=== PATIENT | male | born 1955 | race Caucasian/White ===

== ENCOUNTER 2022-03-10 03:10 | Inpatient (IN) | payer BC ==
[2022-03-10] MEDS ORDERED: Ondansetron PF 4 MG/2 ML Vial ONE ×2 (05:02→12:53)
[2022-03-10 05:36] LABS: #Basophils 0.1 10x3/uL (0.0-0.2); #Eosinphils 0.1 10x3/uL (0.0-0.5); #Monocytes 0.5 10x3/uL (0.0-1.1); #Neutrophils 5.4 10x3/uL (1.5-8.4); %Basophils 0.7 % (0.0-2.0); %Eosinophils 0.7 % (0.0-6.0); %Lymphocytes 15.2 % (18.0-47.0); %Monocytes 6.4 % (0.0-10.0); %Neutrophils 76.7 % (40.0-75.0); Hemoglobin 15.9 g/dL (13.5-17.5); Mean Corpuscular HGB CONC 33.6 g/dL (32.0-36.0); Mean Corpuscular Hemoglobin 28.3 pg (27.0-33.0); Mean Corpuscular Volume 84.3 fl (81.2-95.1); Mean Platelet Volume 10.4 fl (7.4-10.4); Platelet Count 204 10x3/uL (150-450); RBC Distribution Width 13.1 % (11.5-14.5); Red Blood Cell (RBC) Count 5.61 10x6/uL (4.32-5.72)
[2022-03-10 06:10] LABS: ALT (SGPT) 18 U/L (8-55); AST (SGOT) 26 U/L (5-34); Alkaline Phosphatase 49 U/L (40-110); Anion Gap 18 mmol/L (10-20); BUN (Urea Nitrogen) 16 mg/dL (8.4-25.7); Bilirubin, Total 0.7 mg/dL (0.2-1.2); Calc. Creatinine Clearance 0 mL/min (70-130); Calcium 9.8 mg/dL (7.8-10.44); Carbon Dioxide 24 mmol/L (23-31); Chloride 102 mmol/L (98-107); Estimated GFR 85; Globulin 3.4 g/dL (2.4-3.5); Glucose 111 mg/dL (80-115); Lipase 48 U/L (8-78); Potassium 3.6 mmol/L (3.5-5.1); Protein, Total 8.4 g/dL (5.8-8.1); Sodium 140 mmol/L (136-145)
[2022-03-10] MEDS ORDERED: Piperacillin/Tazobactam 3.375 GM VIAL ONE ×2 (07:49→15:25)
[2022-03-10 08:27] LABS: SARS-CoV-2 NAA Rapid Test Not Detected (NotDetected)
[2022-03-10] MEDS ORDERED: Morphine 4 MG/ML VIAL ONE ×2 (08:54→12:53)
[2022-03-10] MEDS ORDERED: Bupivacaine 0.25% HCL 30 ML VIAL ONE (15:20)
[2022-03-10] MEDS ORDERED: EPINEPHrine 1 MG/ML AMP ONE (15:21)
[2022-03-10] MEDS ORDERED: PROPOFOL 20 ML ONE (15:51)
[2022-03-10] MEDS ORDERED: Fentanyl 100 MCG/2 ML VIAL ONE ×2 (15:52→16:23)
[2022-03-10] MEDS ORDERED: Rocuronium Bromide 10 MG/ML (10ML VIAL) ONE (15:53)
[2022-03-10] MEDS ORDERED: Succinylcholine 200 MG/10 ml SYRINGE FS ONE (15:53)
[2022-03-10] MEDS ORDERED: Ketorolac Tromethamine 30 MG/ML VIAL ONE (16:10)
[2022-03-10] MEDS ORDERED: PHENYLEPHRINE-NS 100 MCG/ML 10 ML SYRINGE ONE (16:13)
[2022-03-10] MEDS ORDERED: Dexamethasone 20 MG/5 ML VIAL ONE (16:13)
[2022-03-10] MEDS ORDERED: Esmolol 100 MG/10 ML VIAL ONE (16:25)
[2022-03-10] MEDS ORDERED: Mag-Al 1200 mg/1200 mg/30 ML UDCUP PO PRN (17:36)
[2022-03-10] MEDS ORDERED: Ondansetron PF 4 MG/2 ML Vial IVP PRN (17:36)
[2022-03-10] MEDS ORDERED: HYDROcodone/Acetaminophen 10/325 mg Tablet PO PRN (17:36)
[2022-03-10] MEDS ORDERED: Dextrose 50% Abboject 50 ML SYRINGE SLOW IVP PRN (17:36)
[2022-03-10] MEDS ORDERED: Dextrose 5% in Water 1,000 ML IV PRN (17:36)
[2022-03-10] MEDS ORDERED: Morphine 2 MG/ML VIAL SLOW IVP PRN (17:36)
[2022-03-10] MEDS ORDERED: Calcium Carbonate 500 MG ChewTAB PO PRN (17:36)
[2022-03-10] MEDS ORDERED: Promethazine HCl 25 MG/ML VIAL IM PRN (17:36)
[2022-03-10] MEDS ORDERED: hydrALAZINE 20 MG/ML VIAL SLOW IVP PRN (17:36)
[2022-03-10 19:48] VITALS: BMI 24.4
[2022-03-10] MEDS: Ketorolac Tromethamine 30 MG/ML VIAL IVP SCH (21:05)
[2022-03-10] MEDS: D5 1/2 NS w/20 mEq KCL 1,000 ML IV SCH (21:18)
[2022-03-11] MEDS: Ketorolac Tromethamine 30 MG/ML VIAL IVP SCH ×2 (04:48→09:18)
[2022-03-11] MEDS: D5 1/2 NS w/20 mEq KCL 1,000 ML IV SCH ×2 (06:24→10:30)
[2022-03-11 12:09] VITALS: BP 114/75; TEMP 98
== END 2022-03-11 14:07 | disposition home or self-care (01) | DRG 419 ==
LOC: CSHERS 03:10 → CSHSDC/OP 03:10 → EDSTATUS 15:54 → CSHTELE 18:40
PROVIDERS: ADMIT Surgery; ATTEND Surgery
PROC: 0FT44ZZ Resection of Gallbladder, Percutaneous Endoscopic Approach (ICD-10-PCS; principal; 2022-03-10)
DX: K80.12 Calculus of gallbladder with acute and chronic cholecystitis without obstruction (principal); N40.0 Benign prostatic hyperplasia without lower urinary tract symptoms; K21.9 Gastro-esophageal reflux disease without esophagitis; G89.29 Other chronic pain; Z20.822 Contact with and (suspected) exposure to COVID-19; Z98.890 Other specified postprocedural states; Z88.0 Allergy status to penicillin; K82.A1 Gangrene of gallbladder in cholecystitis
CPT/HCPCS: 36416; 76705; 80053; 83690; 84484; 85025; 88304; 93005; 94760; 96361; 96365; 96366; 96367; 96368; 96375; 96376; C1713; J0171; J1100; J1885; J2270; J2405; J2543; J2704; J3010; J3480; S0020; U0002

== ENCOUNTER 2022-09-29 12:27 | Emergency (ER) | payer BC ==
[~2022-09-29 12:27] MED LIST: Iopamidol 300 61% 100 ML VIAL FS ONE
[2022-09-29 13:37] LABS: Bilirubin Neg (Negative); Blood, Urine 250 (Negative); Clarity Slightly Cloudy (Clear); Glucose, Urine (Dipstick) Normal (Negative); Ketone, Urine Negative (Negative); Leukocyte 100 (Negative); Nitrite Negative (Negative); Protein, Urine (Dipstick) 100 mg/dl (Neg-Trace); Specific Gravity, Urine 1.015 (1.005-1.030); Urobilinogen Normal mg/dL (Less than 2)
[2022-09-29] MEDS ORDERED: Morphine 4 MG/ML VIAL ONE ×2 (13:45→15:51)
[2022-09-29] MEDS ORDERED: Ondansetron PF 4 MG/2 ML Vial ONE (13:46)
[2022-09-29 13:57] LABS: RBC/HPF 21-50 HPF (0-3)
[2022-09-29 13:59] LABS: Bacteria/HPF 2+ HPF (None Seen); Squamous Epithelial 0-3 HPF (0-3)
[2022-09-29 14:02] LABS: Mucous/LPF 2+ LPF (<2+)
[2022-09-29 14:23] LABS: #Eosinphils 0.1 10x3/uL (0.0-0.5); #Monocytes 0.6 10x3/uL (0.0-1.1); #Neutrophils 4.2 10x3/uL (1.5-8.4); %Basophils 0.7 % (0.0-2.0); %Eosinophils 1.7 % (0.0-6.0); %Lymphocytes 17.1 % (18.0-47.0); %Monocytes 10.5 % (0.0-10.0); %Neutrophils 69.5 % (40.0-75.0); Hemoglobin 14.5 g/dL (13.5-17.5); Mean Corpuscular HGB CONC 34.4 g/dL (32.0-36.0); Mean Corpuscular Hemoglobin 29.6 pg (27.0-33.0); Mean Platelet Volume 10.1 fl (7.4-10.4); Platelet Count 215 10x3/uL (150-450); RBC Distribution Width 12.8 % (11.5-14.5); Red Blood Cell (RBC) Count 4.94 10x6/uL (4.32-5.72)
[2022-09-29 14:28] LABS: ALT (SGPT) 23 U/L (8-55); AST (SGOT) 26 U/L (5-34); Albumin 4.1 g/dL (3.4-4.8); Alkaline Phosphatase 40 U/L (40-110); Anion Gap 13 mmol/L (10-20); BUN (Urea Nitrogen) 13 mg/dL (8.4-25.7); Bilirubin, Total 0.8 mg/dL (0.2-1.2); Calc. Creatinine Clearance 0 mL/min (70-130); Carbon Dioxide 26 mmol/L (23-31); Chloride 102 mmol/L (98-107); Estimated GFR 99; Globulin 2.6 g/dL (2.4-3.5); Glucose 108 mg/dL (80-115); Lipase 23 U/L (8-78); Potassium 3.8 mmol/L (3.5-5.1); Protein, Total 6.7 g/dL (5.8-8.1); Sodium 137 mmol/L (136-145)
== END 2022-09-29 17:48 | disposition home or self-care (01) ==
LOC: CSHERS 12:27
DX: G89.18 Other acute postprocedural pain (principal); K21.9 Gastro-esophageal reflux disease without esophagitis
CPT/HCPCS: 74177; 80053; 81003; 81015; 83690; 85025; 96361; 96374; 96375; 96376; J2270; J2405; Q9967

== ENCOUNTER 2023-04-19 15:19 | Outpatient (CLI) | payer BC, MEDICARE | END 2023-04-19 15:20 | disposition home or self-care (01) | LOC: CSHRAD 15:19 | PROVIDERS: ATTEND Internal Medicine | DX: M25.552 Pain in left hip (principal) ==